=== PATIENT | male | born 1960 | race Caucasian/White ===

== ENCOUNTER 2023-06-17 03:30 | Observation (INO) | payer BC ==
[2023-06-17 04:52] VITALS: BMI 39.3
[2023-06-17] MEDS ORDERED: Ondansetron ODT 4 MG TAB PO PRN (05:43)
[2023-06-17] MEDS ORDERED: Ondansetron PF 4 MG/2 ML Vial IVP PRN (05:43)
[2023-06-17 06:15] LABS: Troponin I 0.013 ng/mL (< 0.028)
[2023-06-17 06:16] LABS: Magnesium 2.2 mg/dL (1.6-2.6)
[2023-06-17] MEDS: Morphine 4 MG/ML VIAL SLOW IVP PRN ×4 (06:28→21:35)
[2023-06-17] MEDS ORDERED: Aspirin 81 mg Enteric Coated Tablet PO SCH (09:00)
[2023-06-17] MEDS: Spironolactone 25 MG TAB PO SCH ×2 (09:31→17:21)
[2023-06-17] MEDS: Tamsulosin HCl 0.4 MG CAP PO SCH (09:32)
[2023-06-17] MEDS: Lisinopril 2.5 MG TAB PO SCH (09:32)
[2023-06-17] MEDS: Carvedilol 3.125 MG TAB PO SCH ×2 (09:32→17:21)
[2023-06-17] MEDS: Pantoprazole 40 MG VIAL IVP SCH ×2 (09:33→21:36)
[2023-06-17 11:59] LABS: Prothrombin Time 82.9 sec (9.5-12.1)
[2023-06-17] MEDS ORDERED: Phytonadione 5 MG in Sodium Chloride 0.9% 50 ML IVPB SCH (12:15)
[2023-06-17] MEDS ORDERED: Phytonadione 10 MG/ML AMP SLOW IVP SCH (12:15)
[2023-06-17] MEDS ORDERED: Phytonadione 10 MG/ML AMP PO SCH (13:00)
[2023-06-17] MEDS: Simvastatin 10 MG TAB PO SCH (21:36)
[2023-06-18] MEDS: Morphine 4 MG/ML VIAL SLOW IVP PRN ×3 (04:31→22:03)
[2023-06-18 04:41] LABS: #Basophils 0.1 10x3/uL (0.0-0.2); #Eosinphils 0.8 10x3/uL (0.0-0.5); #Monocytes 0.9 10x3/uL (0.0-1.1); #Neutrophils 6.5 10x3/uL (1.5-8.4); %Basophils 0.5 % (0.0-2.0); %Lymphocytes 12.7 % (18.0-47.0); %Monocytes 9.5 % (0.0-10.0); %Neutrophils 68.7 % (40.0-75.0); Hematocrit 38.4 % (38.8-50.0); Hemoglobin 12.2 g/dL (13.5-17.5); Mean Corpuscular HGB CONC 31.8 g/dL (32.0-36.0); Mean Corpuscular Hemoglobin 29.6 pg (27.0-33.0); Mean Corpuscular Volume 93.2 fl (81.2-95.1); Mean Platelet Volume 11.2 fl (7.4-10.4); Platelet Count 160 10x3/uL (150-450); RBC Distribution Width 14.1 % (11.5-14.5); Red Blood Cell (RBC) Count 4.12 10x6/uL (4.32-5.72); White Blood Cell (WBC) Count 9.5 10x3/uL (3.5-10.5)
[2023-06-18 04:44] LABS: INR-International Normal Ratio 2.7; PTT 50.4 sec (22.0-33.0); Prothrombin Time 28.7 sec (9.5-12.1)
[2023-06-18 04:52] LABS: Anion Gap 13 mmol/L (10-20); BUN (Urea Nitrogen) 17 mg/dL (8.4-25.7); Calc. Creatinine Clearance 111 mL/min (70-130); Calcium 8.5 mg/dL (7.8-10.44); Carbon Dioxide 26 mmol/L (23-31); Chloride 100 mmol/L (98-107); Estimated GFR 64; Glucose 115 mg/dL (80-115); Potassium 4.6 mmol/L (3.5-5.1); Sodium 134 mmol/L (136-145)
[2023-06-18] MEDS: Spironolactone 25 MG TAB PO SCH ×2 (08:14→17:23)
[2023-06-18] MEDS: Lisinopril 2.5 MG TAB PO SCH (08:15)
[2023-06-18] MEDS: Carvedilol 3.125 MG TAB PO SCH ×2 (08:16→17:23)
[2023-06-18] MEDS: Tamsulosin HCl 0.4 MG CAP PO SCH (08:17)
[2023-06-18] MEDS: Pantoprazole 40 MG VIAL IVP SCH ×2 (08:18→21:57)
[2023-06-18] MEDS ORDERED: Phytonadione 10 MG/ML AMP PO SCH (11:15)
[2023-06-18 13:26] LABS: SARS-CoV-2 NAA Rapid Test Not Detected (NotDetected)
[2023-06-18 16:11] LABS: INR-International Normal Ratio 1.7; PTT 38.5 sec (22.0-33.0); Prothrombin Time 18.3 sec (9.5-12.1)
[2023-06-18] MEDS ORDERED: Enoxaparin 120 MG/0.8 ML SYRINGE SC SCH (17:15)
[2023-06-18] MEDS: Simvastatin 10 MG TAB PO SCH (21:57)
[2023-06-19 06:23] LABS: #Basophils 0.1 10x3/uL (0.0-0.2); #Eosinphils 0.9 10x3/uL (0.0-0.5); #Monocytes 0.7 10x3/uL (0.0-1.1); %Basophils 0.9 % (0.0-2.0); %Eosinophils 11.3 % (0.0-6.0); %Lymphocytes 14.7 % (18.0-47.0); %Monocytes 8.9 % (0.0-10.0); %Neutrophils 63.6 % (40.0-75.0); Hematocrit 38.9 % (38.8-50.0); Hemoglobin 12.8 g/dL (13.5-17.5); Mean Corpuscular HGB CONC 32.9 g/dL (32.0-36.0); Mean Corpuscular Volume 91.3 fl (81.2-95.1); Mean Platelet Volume 11.4 fl (7.4-10.4); Platelet Count 171 10x3/uL (150-450); RBC Distribution Width 13.7 % (11.5-14.5); Red Blood Cell (RBC) Count 4.26 10x6/uL (4.32-5.72); White Blood Cell (WBC) Count 7.9 10x3/uL (3.5-10.5)
[2023-06-19 06:29] LABS: INR-International Normal Ratio 1.5; PTT 39.8 sec (22.0-33.0); Prothrombin Time 16.1 sec (9.5-12.1)
[2023-06-19 06:54] LABS: ALT (SGPT) 13 U/L (8-55); AST (SGOT) 14 U/L (5-34); Albumin 3.3 g/dL (3.4-4.8); Alkaline Phosphatase 63 U/L (40-110); Anion Gap 17 mmol/L (10-20); BUN (Urea Nitrogen) 18 mg/dL (8.4-25.7); Bilirubin, Direct 0.3 mg/dL (0.1-0.3); Bilirubin, Total 0.6 mg/dL (0.2-1.2); Calc. Creatinine Clearance 108 mL/min (70-130); Calcium 8.7 mg/dL (7.8-10.44); Carbon Dioxide 23 mmol/L (23-31); Chloride 101 mmol/L (98-107); Estimated GFR 63; Glucose 104 mg/dL (80-115); Magnesium 2.1 mg/dL (1.6-2.6); Potassium 4.5 mmol/L (3.5-5.1); Protein, Total 6.5 g/dL (5.8-8.1); Sodium 136 mmol/L (136-145)
[2023-06-19] MEDS: Lisinopril 2.5 MG TAB PO SCH (08:37)
[2023-06-19] MEDS: Spironolactone 25 MG TAB PO SCH (08:37)
[2023-06-19] MEDS: Tamsulosin HCl 0.4 MG CAP PO SCH (08:37)
[2023-06-19] MEDS: Carvedilol 3.125 MG TAB PO SCH (08:38)
[2023-06-19] MEDS: Pantoprazole 40 MG VIAL IVP SCH (08:38)
[2023-06-19] MEDS ORDERED: PROPOFOL 40 ML ONE (11:25)
[2023-06-19] MEDS ORDERED: Midazolam HCl 2 mg/2 ml Vial ONE (11:25)
[2023-06-19 12:20] VITALS: BP 128/73; TEMP 97
== END 2023-06-19 15:11 | disposition home or self-care (01) ==
LOC: CSHTELE 04:31
PROVIDERS: ADMIT Family Medicine; ATTEND Family Medicine
PROC: 0DB78ZX Excision of Stomach, Pylorus, Via Natural or Artificial Opening Endoscopic, Diagnostic (ICD-10-PCS; principal; 2023-06-19)
DX: K29.50 Unspecified chronic gastritis without bleeding (principal); K31.89 Other diseases of stomach and duodenum; K21.00 Gastro-esophageal reflux disease with esophagitis, without bleeding; I11.0 Hypertensive heart disease with heart failure; I50.20 Unspecified systolic (congestive) heart failure; E78.5 Hyperlipidemia, unspecified; I25.10 Atherosclerotic heart disease of native coronary artery without angina pectoris; I25.41 Coronary artery aneurysm; R79.1 Abnormal coagulation profile; E66.9 Obesity, unspecified; Z68.39 Body mass index [BMI] 39.0-39.9, adult; Z90.49 Acquired absence of other specified parts of digestive tract; Z90.89 Acquired absence of other organs; Z88.8 Allergy status to other drugs, medicaments and biological substances; Z86.73 Personal history of transient ischemic attack (TIA), and cerebral infarction without residual deficits; Z79.01 Long term (current) use of anticoagulants; Z79.899 Other long term (current) drug therapy
CPT/HCPCS: 36415; 36416; 80048; 80076; 83735; 84484; 85025; 85610; 85652; 85730; 88305; 88342; 93005; 93010; 94760; 96372; 96374; 96375; 96376; C9113; G0378; J1650; J2250; J2270; J2704; J3430